=== PATIENT | male | born 1990 | race African-American/Black ===

== ENCOUNTER 2020-10-01 16:04 | Emergency (ER) | payer OTHER ==
[2020-10-01 16:54] VITALS: BP 125/57; PULSE 70; TEMP 98.5; BMI 17.8
[2020-10-01] MEDS ORDERED: DIPHTH,PERTUSS(ACELL),TET 0.5 ML DISP.SYRIN IM ONE ×2 (18:17→18:18)
== END 2020-10-01 19:29 | disposition home or self-care (01) ==
LOC: JERFT 16:04
PROC: 0HQFXZZ Repair Right Hand Skin, External Approach (ICD-10-PCS; principal; 2020-10-01)
PROC: 3E0234Z Introduction of Serum, Toxoid and Vaccine into Muscle, Percutaneous Approach (ICD-10-PCS; 2020-10-01)
DX: S61.210A Laceration without foreign body of right index finger without damage to nail, initial encounter (principal)
CPT/HCPCS: 73130-TC-RT-FY; 90715; 99284-25